=== PATIENT | female | born 1980 | race Caucasian/White ===

== ENCOUNTER → 2020-03-25 | Outpatient (CLI) | payer OTHER ==
[~2020-03-25] MED LIST: IBUPROFEN 800800 M1 PO; NOHOMEMEDICATIONS; PERCOCET PO; TRAMADOL 50 MG50 MG PO
== END ==
LOC: M.LAB 16:49
PROVIDERS: ATTEND Surgery
DX: Z01.818 Encounter for other preprocedural examination (principal); Z11.59 Encounter for screening for other viral diseases; N63.0 Unspecified lump in unspecified breast

== ENCOUNTER → 2020-03-28 | Day surgery (SDC) | payer OTHER ==
--- NOTE | ~2020-03-28 | OP ---
[address] [address] OPERATIVE REPORT Name: MARIELOS ZHOU Room: [facility]#: [id number] Admission: 03/28/20 Attend Phys: Nikki Bowen DO Discharge: Date of : 78 Report #: [id number] THIS REPORT FOR: //name// cc: Nigel Murcia John E. DO ~ CC: Nikki Murcia DO DATE OF SERVICE: 03/28/2020 PREOPERATIVE DIAGNOSIS: Right nipple mass. POSTOPERATIVE DIAGNOSIS: Right nipple mass. SURGEON: Nikki Bowen DO DAMAGE PREVENTION COORDINATOR: Iain King, PGY5 OPERATION PERFORMED: Excisional biopsy, right nipple mass. ANESTHESIA: General and local. ESTIMATED BLOOD LOSS: 5 mL. SPECIMEN: Right nipple mass. COMPLICATIONS: None. INDICATIONS: The patient is a 39-year-old female that noticed a right nipple mass. She underwent mammography and ultrasound, which demonstrated a BI-RADS 5 lesion 1 cm from the areola. She was informed of the risks and benefits of excisional biopsy and decided to proceed with surgery. DESCRIPTION OF PROCEDURE: After informed consent was obtained, the patient was brought to the operating room and placed in supine position. SCDs were on and running. Preoperative antibiotics were given. General anesthesia was administered with an LMA. The patient was prepped and draped in the usual sterile fashion. Surgical pause was held to confirm proper patient and procedure. The periareolar incision was planned and anesthetized with 0.5% Marcaine, #15 blade was used to create the skin incision. Dissection was carried through the dermis using cautery. A direct palpation was used to guide the location of dissection. Once the mass was identified, it was directly adherent to the deep side of the nipple. Metzenbaum scissors were used to separate the nipple areolar complex from the mass. Once completely detached, cautery was used for circumferential dissection. Again, [place] [id number] OPERATIVE REPORT Name: MARIELOS ZHOU Room: [facility].#: [id number] Admission: 03/28/20 Attend Phys: Nikki Bowen DO Discharge: Date of : 78 Report #: [id number] guide the extent of dissection. Once circumferentially around the mass, the mass was transected and handed off as specimen, it was marked with a short stitch superior, long stitch lateral. Again, the anterior superficial margin was the nipple complex itself. After this was handed off, the cavity was inspected for hemostasis. Cautery was used to achieve hemostasis. Wound was closed in layered fashion using 3-0 Vicryl, 4-0 Monocryl. Wound was cleansed and dressed with Dermabond. The patient was emerged from anesthesia and transferred to PACU in stable condition. All counts were correct. By: [id number] khai Nash
[2020-03-28 13:18] LABS: HEMATOCRIT 39.9 % (37.0-47.0); HEMOGLOBIN 13.8 gm/dL (12.0-15.0)
--- NOTE | 2020-04-02 11:07 | PATH ---
[address] [address] PATHOLOGY RPT PROCEDURE Name: MARIELOS ZHOU Room: [facility]#: [id number] Admission: 03/28/20 Date of : 78 Discharge: Report #: [id number] Path Case #: [id number] [facility] Accession Number: [id number] . 01 Material submitted: . breast - EXCISIONAL BIOPSY RIGHT NIPPLE/RIGHT BREAST. Modifiers: right . 01 Clinical history: . 03/26 EXCISION MASS NIPPLE MASS RIGHT BREAST STITCH SHORT SUPERIOR/LONG LATERAL . 02 Diagnosis: RIGHT NIPPLE/RIGHT BREAST, EXCISIONAL BIOPSY: - INFILTRATING DUCTAL ADENOCARCINOMA, INTERMEDIATE GRADE, SPANNING 14 MM, WITH LYMPHOVASCULAR INVASION AND WITH INVOLVEMENT OF SUPEROLATERAL, ANTERIOR AND MEDIAL MARGINS. SEE COMMENT. . . SURGICAL PATHOLOGY CANCER CASE SUMMARY Protocol posting date: September 2019 . INVASIVE CARCINOMA OF THE BREAST: Biopsy . Procedure ___ Other: Excisional biopsy Specimen Laterality ___ Right Tumor Site ___ Nipple Tumor Size ___ Greatest dimension of largest invasive focus >1 mm: 14 mm . Histologic Type ___ Invasive carcinoma of no special type (ductal) Histologic Grade (Eagle Histologic Score) Glandular (Acinar)/Tubular Differentiation ___ Score 2 (10% to 75% of tumor area forming glandular/tubular structures) Nuclear Pleomorphism ___ Score 3 (vesicular nuclei, often with prominent nucleoli, exhibiting marked variation in size and shape, occasionally with very large and bizarre forms) Mitotic Rate ___ Score 2 Overall Grade ___ Grade 2 (scores of 6 or 7) . Ductal Carcinoma In Situ (DCIS) [place] [address] PATHOLOGY RPT PROCEDURE Name: MARIELOS ZHOU Room: [facility].#: [id number] Admission: 03/28/20 Date of : 78 Discharge: Report #: [id number] Path Case #: [id number] ___ Present Architectural Patterns ___ Solid Nuclear Grade ___ Grade III (high) Necrosis ___ Not identified Lymphovascular Invasion ___ Present Microcalcifications ___ Present in non-neoplastic tissue Biomarker Studies ___ Pending Q 04/02/2020 1055 Local . 02 Comment: The tumor has some heterogeneity to its appearance in which some areas show prominent duct formation and others solid sheets of neoplastic cells, histologically apparent in A6. Inked/cauterized marginal involvement of the superolateral, anterior and medial margins are seen respectively in A1, A3 and A6. A panel of properly controlled immunohistochemical stains performed on A7 shows the neoplastic cells to have the following characteristics, supporting the classification: . E-cadherin: Strong positive Keratin AE1/AE3: Highlights neoplastic cells . Breast tumor profile studies are pending on A6 and will be the subject of an addendum report. Discussed with Dr. Dimas at approximately 0950 on 04/02/2020. (ROLAND/db; 04/02/2020) . 02 Electronically signed: . Fred Collado MD, Pathologist NPI- [id number] . 01 Gross description: . The specimen is received in formalin, labeled "Marielos Zhou, R nipple/R breast, short superior, long lateral". Received is a 5 g lumpectomy specimen measuring 4.1 cm from superior to inferior, 1.8 cm from medial to lateral, and 1.7 cm from anterior to posterior. The specimen is inked as follows: Superior-blue, inferior-green, lateral-red, medial-yellow, anterior-black, posterior-orange. Sectioning reveals white-donald, fibrous cut surfaces throughout with a slight amount of scattered yellow-donald lobulated tissue. The specimen is submitted entirely from superior to inferior aspects in cassettes A1 through A8. The cold ischemic time and time in formalin are not provided. The time out of formalin is 6:50 p.m. on 03/29/2020. [place] [address] PATHOLOGY RPT PROCEDURE Name: MARIELOS ZHOU Room: [facility]#: [id number] Admission: 03/28/20 Date of : 78 Discharge: Report #: [id number] Path Case #: [id number] (CAA; 03/29/2020) QAC/QAC 03/29/2020 1013 Local . 02 Pathologist provided ICD-10: C50.011 . 02 CPT . 689451, V84060, Q00332 Specimen Comment: A courtesy copy of this report has been sent to [phone], [phone] Specimen Comment: [id number] Specimen Comment: Report sent to DR DIMAS / DR RAHMAN Performed at: 01 [facility] [address], [place], [place] [id number] MD David Thapa MD Phone: [phone] Performed at: 02 [facility] [place] [facility] [address], [place] [id number] MD Fred Collado MD Phone: [phone]
== END | disposition home or self-care (01) ==
LOC: M.SUR 11:48
PROVIDERS: ATTEND Surgery
DX: N63.10 Unspecified lump in the right breast, unspecified quadrant (principal); C50.011 Malignant neoplasm of nipple and areola, right female breast; Z79.899 Other long term (current) drug therapy; Z88.1 Allergy status to other antibiotic agents; Z88.5 Allergy status to narcotic agent; Z98.890 Other specified postprocedural states

== ENCOUNTER → 2020-04-10 | Outpatient (CLI) | payer OTHER ==
[~2020-04-10] MED LIST changes: +OXYCODONE HCL 55 MG PO
== END ==
LOC: M.MRI 11:08
PROVIDERS: ATTEND Surgery
DX: C50.911 Malignant neoplasm of unspecified site of right female breast (principal); N63.0 Unspecified lump in unspecified breast

== ENCOUNTER → 2020-04-19 | Outpatient (CLI) | payer OTHER ==
[~2020-04-19] MED LIST changes: -OXYCODONE HCL 55 MG PO
--- NOTE | 2020-04-21 11:02 | CON ---
[address] [address] CONSULTATION Name: MARIELOS ZHOU Room: [facility]#: [id number] Admission: 04/19/20 Attend Phys: Harvinder Sharma MD Discharge: Date of : 78 Report #: [id number] THIS REPORT FOR: //name// cc: Dora Jaeger Ann FNPC ~ THIS REPORT FOR: //name// CC: Dora Crenshaw MD DATE OF SERVICE: 04/19/2020 [facility] RADIATION ONCOLOGY CONSULT NOTE REFERRING PHYSICIANS: Include RE Snell; Nikki Bowen DO, German Crenshaw MD PRIMARY SITE AND HISTOPATHOLOGY: The patient was diagnosed with an infiltrating ductal carcinoma that is estrogen receptor positive involving the right breast. HISTORY OF PRESENT ILLNESS: The patient is a 40-year-old female, who palpated a right nipple mass and went on to undergo a diagnostic bilateral mammogram, diagnostic imaging centers on 03/18/2020, and she also had an ultrasound and that revealed a 0.9 cm nodule, in the slightly lateral retroareolar right breast, which corresponded to the area of palpable concern. The ultrasound revealed a nodule at the 9 o'clock position of the right breast, which measured 1.5 cm x 1.1 cm x 1 cm. The patient denied having any nipple discharge. The patient had an excisional biopsy of that nodule and that was performed on 03/26/2020 and the pathology revealed an intermediate grade infiltrating ductal adenocarcinoma that spanned 1.4 cm with lymphovascular invasion and with involvement of the superolateral, anterior and medial margins. The breast cancer was 90% estrogen receptor positive, 65% progesterone receptor positive and HER2/elena negative, Ki-67 was about 25%. She indicated that she will be scheduled for reexcision of this area. She presents to discuss the role of radiation therapy. PAST MEDICAL HISTORY AND PAST SURGICAL HISTORY: The patient has diabetes. She has a history of bronchitis. She was treated for fallopian tube adhesion in 2003. She had right ankle repair in 2016. She also was treated for an ectopic in 2007. She had nodules resected from the vocal cords in 1983. OBSTETRICS AND GYNECOLOGY: Menarche at age 13. Last menstrual period 04/13/2020. The patient is 2, [address] [place] [address] CONSULTATION Name: ABELARDOMARIELOS Caicedo Room: [facility]#: [id number] Admission: 04/19/20 Attend Phys: Harvinder Sharma MD Discharge: Date of : 78 Report #: [id number] FAMILY HISTORY: Paternal grandmother had breast cancer. Paternal grandfather had prostate cancer. 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 She is . She has a 9-year-old daughter and a 12-year-old son. Ethanol: She, maybe, drinks an alcohol-containing beverage once a week. Cigarettes: She does not smoke cigarettes. REVIEW OF SYSTEMS: GENERAL: She denied having any fevers or chills. SKIN: She denied having any color changes, itching, bruising. LYMPH NODES: She denied having enlarged or painful glands in the neck. ENDOCRINE: She denied having any hot or cold intolerance. HEMATOLOGY AND IMMUNOLOGY: She denied having any anemia or recent bleeding. MUSCULOSKELETAL: She denied having any arthritis or painful swollen joints. HEAD AND NECK: She denied having any headaches, migraines, vertigo. RESPIRATORY: She denied having shortness of breath. CARDIOVASCULAR: She denied having palpitations. GASTROINTESTINAL: She denied having nausea or vomiting. NEUROLOGIC: Denied having focal weakness. PHYSICAL EXAMINATION: With my nurse, Marleny Lopes, present: VITAL SIGNS: Height was 5 feet 2-3/4 inches, weight 194.8 pounds, blood pressure was 110/68, pulse was 99, temperature was 98.4 degrees Fahrenheit, oxygen saturation was 94%. GENERAL: The patient was alert, oriented, in no acute distress. LYMPH NOES: She had no palpable cervical or supraclavicular or axillary lymphadenopathy. EYES: Pupils were equal, round, reactive to light and accommodation. Extraocular movement was intact. HEAD, EARS, EAR, NOSE, AND THROAT: Mouth had no visible lesions. HEENT: Pupils were equal, round, reactive to light and accommodation. HEART: Had a regular rate and rhythm without murmur. LUNGS: were clear to auscultation. BREASTS: The left breast had no suspicious palpable masses and the right breast had postoperative changes, but no suspicious palpable masses. ABDOMEN: Not tender. Spleen was not palpable. Liver was at the costal margin. EXTREMITIES: Had no clubbing, cyanosis or edema. NEUROLOGIC: Cranial nerves 2-12 are intact. Sensation was intact. The patient had 5/5 strength in her extremities. RADIOLOGY REPORT: Breast MRI From 04/10/2020. That revealed a biopsy [place] [address] CONSULTATION Name: MARIELOS ZHOU Room: [facility]#: [id number] Admission: 04/19/20 Attend Phys: Harvinder Sharma MD Discharge: Date of : 78 Report #: [id number] that measured 2.5 cm.x 2.2 x 2.5 cm. There was no abnormal axillary adenopathy. ASSESSMENT AND PLAN: The patient has findings consistent with an early stage, estrogen receptor positive right breast cancer. She does realize that her local treatment options are mastectomy versus breast conservation therapy. The patient has pursued breast conservation therapy. The patient indicated that she will be scheduling a reexcision of the lumpectomy bed and lymph node sampling. The efficacy of breast conservation therapy can be found in the NSABP B-06 protocol, which randomized patients with early breast cancer between total mastectomy versus lumpectomy alone versus lumpectomy and radiation therapy. At 20 years' followup, there was no significant difference in overall survival between the 3 groups. The addition of radiation therapy to lumpectomy reduced local failure rate from 39%-14%. She also already saw her medical oncologist, Dr. Crenshaw. The risks, benefits, logistics of radiation therapy were explained to the patient in detail. She was told that radiation therapy was the standard part of breast conservation therapy to help reduce the local failure rate. At this point, she was asked to return for a follow up appointment in about 4-6 weeks and then review her surgical pathology at that point and help set up radiation therapy. Thank you very much for this consult. <ELECTRONICALLY SIGNED> By: Harvinder Sharma MD 04/21/20 1102 [id number] khai Mcdowell
== END ==
LOC: M.RTH 11:00
PROVIDERS: ATTEND Radiology Radiation Oncology
DX: C50.911 Malignant neoplasm of unspecified site of right female breast (principal); E11.9 Type 2 diabetes mellitus without complications

== ENCOUNTER → 2020-05-08 | Outpatient (CLI) | payer OTHER ==
[~2020-05-08] MED LIST changes: +OXYCODONE HCL 55 MG PO
== END ==
LOC: M.LAB 16:39
PROVIDERS: ATTEND Surgery
DX: Z01.812 Encounter for preprocedural laboratory examination (principal); Z20.828 Contact with and (suspected) exposure to other viral communicable diseases

== ENCOUNTER → 2020-05-14 | Day surgery (SDC) | payer OTHER ==
[2020-05-14 12:55] LABS: HEMATOCRIT 40.1 % (37.0-47.0)
--- NOTE | 2020-05-15 08:04 | OP ---
[address] [address] OPERATIVE REPORT Name: ABELARDOMARIELOS Marifer Room: [facility]#: [id number] Admission: 05/14/20 Attend Phys: Nikki Bowen DO Discharge: Date of : 78 Report #: [id number] THIS REPORT FOR: //name// cc: Dora Jaeger Ann FNPC ~ CC: Dora Bowen DICTATED BY: Iain King DO DATE OF SERVICE: 05/14/2020 PREOPERATIVE DIAGNOSIS: Right breast cancer of the areola. POSTOPERATIVE DIAGNOSIS: Right breast cancer of the areola. FINDINGS: Previous periareolar incision with underlying cavity uptake at the nipple was 6233, uptake of the lymph node was 1180. SURGEON: Nikki Bowen DO CO-SURGEON: Iain King, PGY5 CARCASS SPLITTER: Harsha Carlisle, PGY1. OPERATION PERFORMED: Excision of the right nipple areolar complex and right superficial sentinel lymph node dissection. ANESTHESIA: General and local. ESTIMATED BLOOD LOSS: 10 mL. SPECIMEN REMOVED: Right nipple areolar complex and right sentinel lymph node biopsy. COMPLICATIONS: None. CONDITION: Stable. DISPOSITION: PACU to home. INDICATIONS: The patient is a 40-year-old female who was found to have right breast mass directly under the right nipple. She was previously taken for excision of the mass, which was found to be invasive cancer with positive margins. She was informed of the risks and benefits of excision of the nipple [address] [address] OPERATIVE REPORT Name: FLAKITOMATEOMARIELOS Room: [facility].#: [id number] Admission: 05/14/20 Attend Phys: Nikki Bowen DO Discharge: Date of : 78 Report #: [id number] areolar complex as well as sentinel lymph node biopsy. She understood the risks and decided to proceed with surgery. TECHNIQUE: After informed consent was obtained, the patient was brought to the operating room and placed in supine position. SCDs were on and running. Preoperative antibiotics were given. General anesthesia was administered with an ET tube. A pre-timeout was held and the isosulfan blue was injected the superior, inferior, medial and lateral aspects of the nipple, 2 mL per quadrant. The patient was then prepped and draped in usual sterile fashion. A surgical pause was held to confirm proper patient and procedure. The incision was planned about the right nipple with an ellipse extending 2 cm lateral at the right and left aspect of the NAC. The planned incision site was infiltrated with 0.5% Marcaine #15 blade was used to make the elliptical incision. Dissection was carried through the dermis and subcutaneous tissue using cautery. An Allis was used to grasp the ellipse of the skin. Cautery was used to excise the nipple areolar complex with care to stay deep enough to include the previous dissection cavity. Once this was completely excised, it was maintain its orientation. A short stitch was placed superior and a long stitch lateral. This was handed off as specimen to go for permanent. The cavity was inspected and hemostatic. This was closed in layered fashion using 3-0 Vicryl and 4-0 Monocryl and it was cleansed and dressed with Dermabond. Attention was then turned towards the right axilla. The uptake at the nipple specimen with the Neoprobe was 6233, a 2 cm incision inferior to the hair-bearing portion of the right axilla was made just posterior to the lateral border of the pectoralis major. Dissection was carried through the subcutaneous tissue until the clavipectoral fascia was identified. This was incised and opened using cautery. A [employer] [place] was used to provide retraction. Blunt dissection was used to dissect down to the lymph node under guidance of the Neoprobe. Once high uptake was identified, the lymph node was palpated and subsequently identified as it had some uptake of the blue dye. This was circumferentially dissected free from the surrounding tissue and amputated using cautery. The maximum uptake of the lymph node was 1180. There was no background higher than 10% of the lymph node value. Cautery was used for hemostasis. Wound was thoroughly irrigated. Surgiflo was used to inject into the right axilla. This wound was closed in layered fashion using 3-0 Vicryl and 4-0 Monocryl. Wound was cleansed and dressed with Dermabond. All counts were correct. The patient was emerged from anesthesia and transferred to the PACU in stable condition. <ELECTRONICALLY SIGNED> By: Nikki Bowen DO 05/15/20 0804 1522 [id number] Bowen DO /nt
--- NOTE | 2020-05-17 11:07 | PATH ---
[facility] [address] [place] [address] PATHOLOGY RPT PROCEDURE Name: MARIELOS ZHOU Room: [facility]#: [id number] Admission: 05/14/20 Date of : 78 Discharge: Report #: [id number] Path Case #: [id number] [facility] Accession Number: [id number] . 01 Material submitted: . PART A: nipple - RIGHT NIPPLE AREOLAR COMPLEX (SHORT-SUPERIOR, LONG-LATERAL). Modifiers: right PART B: lymph node - RIGHT AXILLARY SENTINEL LYMPH NODE. Modifiers: right, axillary tail . 01 Clinical history: . INFILTRATING DUCTAL CARCINOMA . 02 Diagnosis: A. Right nipple areolar complex: - INFILTRATING DUCTAL ADENOCARCINOMA, INTERMEDIATE GRADE, SPANNING 7 MM, ASSOCIATED WITH PRIOR BIOPSY SITE, WITH INVOLVEMENT OF INFERIOR MARGIN FOR SPAN OF 3 MM. SEE COMMENT. . B. Right axillary sentinel lymph node: - One benign lymph node (0/1). See comment. (ROLAND:michaela; 05/16/2020) . . Surgical Pathology Cancer Case Summary . Protocol posting date: September 2019 . INVASIVE CARCINOMA OF THE BREAST: Resection . Procedure ___ Excision (less than total mastectomy) . Specimen Laterality ___ Right . Tumor Site ___ Other: Nipple areolar complex . Tumor Size ___ Greatest dimension of largest invasive focus >1 mm: 7 mm. See comment. . Histologic Type ___ Invasive carcinoma of no special type (ductal) . Histologic Grade ([place] Histologic Score) . Glandular (Acinar)/[place] [address] PATHOLOGY RPT PROCEDURE Name: MARIELOS ZHOU Room: [facility].#: [id number] Admission: 05/14/20 Date of : 78 Discharge: Report #: [id number] Path Case #: [id number] ___ Score 2 (10% to 75% of tumor area forming glandular/tubular structures) . Nuclear Pleomorphism ___ Score 2 (cells larger than normal with open vesicular nuclei, visible nucleoli, and moderate variability in both size and shape) . Mitotic Rate ___ Score 2 . Overall Grade ___ Grade 2 (scores of 6 or 7) . Tumor Focality ___ Single focus of invasive carcinoma . Ductal Carcinoma In Situ (DCIS) ___ Present ___ Negative for extensive intraductal component (EIC) . Size (Extent) of DCIS Estimated size (extent) of DCIS is at least 4 mm . Architectural Patterns ___ Solid . Nuclear Grade ___ Grade II (intermediate) . Necrosis ___ Not identified . Lobular Carcinoma In Situ (LCIS) ___ Not identified . Tumor Extension . Skin ___ Skin is present and uninvolved . Nipple ___ DCIS does not involve the nipple epidermis . Skeletal Muscle ___ No skeletal muscle is present . Margins . [place] [address] PATHOLOGY RPT PROCEDURE Name: MARIELOS ZHOU Room: [facility]#: [id number] Admission: 05/14/20 Date of : 78 Discharge: Report #: [id number] Path Case #: [id number] . ___ Positive for invasive carcinoma ___ Inferior Extent: at least 3 mm (See comment) . DCIS Margins ___ Uninvolved by DCIS Distance from closest margin: 2 mm . Specify closest margin: ___ Inferior: . Regional Lymph Nodes ___ Uninvolved by tumor cells Total Number of Lymph Nodes Examined: 1 Number of Marion Nodes Examined: 1 . Treatment Effect in the Breast ___ No known presurgical therapy . Lymphovascular Invasion ___ Not identified . Dermal Lymphovascular Invasion ___ Not identified . . PATHOLOGIC STAGE CLASSIFICATION (PTNM, AJCC 8TH EDITION) . ___ pT1c: Tumor greater than 10 mm but less than or equal to 20 mm in greatest dimension . Regional Lymph Nodes Modifier ___ (sn): Marion node evaluated. . Regional Lymph Nodes (pN) ___ pN0: No regional lymph node metastasis identified or ITCs only# . Ancillary Studies ___ Breast Biomarker Testing Performed on Previous Biopsy Testing Performed on A6 . Estrogen Receptor (ER) ___ Positive (greater than 10% of cells demonstrate nuclear positivity) 90% . Progesterone Receptor (PgR) ___ Positive 65% . HER2 (by immunohistochemistry) [place] [address] PATHOLOGY RPT PROCEDURE Name: MARIELOS ZHOU Room: [facility]#: [id number] Admission: 05/14/20 Date of : 78 Discharge: Report #: [id number] Path Case #: [id number] ___ Negative (Score 1+) . ___ Ki-67 percentage of positive nuclei: 25% . Microcalcifications ___ Present in non-neoplastic tissue S 05/17/2020 1038 Local . 02 Comment: The tumor size provided in the synoptic data is taken from the span seen in the prior excisional biopsy ([phone]). The tumor is seen to frankly involve the green inked inferior surgical margin in both A4 and A5, spanning 3mm in greatest dimension thru the planes of sections examined. The grossly described "raised and white" possible skin lesion on the nipple shows no neoplasm and may be attributable to prior biopsy changes. Properly controlled keratin AE1/AE3 immunohistochemical stain performed on B1 shows no evidence of metastatic tumor. (ROLAND:michaela; 05/16/2020) . 02 Electronically signed: . Fred Collado MD, Pathologist NPI- [id number] . 01 Gross description: . A. The specimen is received in formalin, labeled "Marielos Zhou, right nipple areolar complex". Received is a 44 g lumpectomy specimen with a short suture designating the superior margin and a long suture designating the lateral margin. The specimen measures 6.7 cm from medial to lateral, 4.6 cm from superior to inferior, and 3.4 cm from anterior to posterior. The anterior aspect of the specimen displays an attached ellipse of skin measuring 6.7 x 3.3 cm with a centrally located everted nipple and areolar complex, measuring 1.7 x 1.7 and 2.4 x 2.4 cm, respectively. The nipple displays a possible well-circumscribed, raised and white lesion measuring 1.2 x 0.7 x 0.1 cm. . The specimen is inked as follows: Superior-blue, inferior-green, lateral-red, medial-yellow, and posterior-orange. The specimen is sectioned from medial to lateral aspects into 18 slices, and is noted to have extensive blue dye-staining throughout, to reveal a previous biopsy site measuring 1.4 x 0.5 x 0.4 cm, which is located in slices 4 through 9. This site is 1.1 cm from the lateral margin, 3.4 cm from the medial margin, 0.6 cm from the posterior margin, 1.0 cm from the epidermal surface, 2.4 cm from the superior margin, and 1.2 cm from the inferior margin. At the medial aspect of the previous biopsy site in slice 9, there are yellow-donald foci present. The remainder of the specimen displays bright yellow, lobulated to white, fibrous cut surfaces throughout. The specimen is submitted representatively as follows: [place] [address] PATHOLOGY RPT PROCEDURE Name: MARIELOS ZHOU Room: [facility]#: [id number] Admission: 05/14/20 Date of : 78 Discharge: Report #: [id number] Path Case #: [id number] A1-A2 most lateral margin, serially sectioned A3 most medial margin, bisected A4-A9 entire previous biopsy site submitted from lateral to medial aspects A10 perpendicular section through nipple to show possible skin lesion. . The cold ischemic time is less than 1 minute. The total formalin fixation time is 31 hours and 10 minutes. . B. The specimen is received in formalin, labeled "Marielos Zhou, right axillary sentinel lymph node". Received is a segment of yellow-donald lobulated tissue measuring 2.0 x 1.0 x 0.9 cm in greatest dimensions. Sectioning reveals a single lymph node measuring 1.4 cm. The specimen is bisected and entirely submitted in cassette B1. Immunohistochemical stains are ordered. The cold ischemic time is less than 1 minute. The total formalin fixation time is 31 hours and 10 minutes. (CAA; 05/15/2020) QAC/QAC 05/17/2020 [facility] Local . 02 Pathologist provided ICD-10: C50.011, D24.1 . 02 CPT . 885870, 802141, Y54805 Specimen Comment: A courtesy copy of this report has been sent to [phone] Specimen Comment: [phone] Specimen Comment: Report sent to / DR LOYD Performed at: [address] [facility], [place] [id number] MD David Thapa MD Phone: [phone] Performed at: 02 [facility] [place] [address] [address], [place], [place] [id number] MD Fred Collado MD Phone: [phone]
== END | disposition home or self-care (01) ==
LOC: M.SUR 09:55
PROVIDERS: ATTEND Surgery
DX: C50.011 Malignant neoplasm of nipple and areola, right female breast (principal); D36.0 Benign neoplasm of lymph nodes; D24.1 Benign neoplasm of right breast; E11.9 Type 2 diabetes mellitus without complications; Z98.890 Other specified postprocedural states; Z79.899 Other long term (current) drug therapy

== ENCOUNTER → 2020-05-31 | Outpatient (CLI) | payer OTHER | LOC: M.LAB 15:53 | PROVIDERS: ATTEND Surgery | DX: Z01.812 Encounter for preprocedural laboratory examination (principal); Z20.828 Contact with and (suspected) exposure to other viral communicable diseases; D05.11 Intraductal carcinoma in situ of right breast ==

== ENCOUNTER → 2020-06-06 | Day surgery (SDC) | payer OTHER ==
[2020-06-06 07:25] LABS: HEMATOCRIT 39.1 % (37.0-47.0); HEMOGLOBIN 13.2 gm/dL (12.0-15.0)
--- NOTE | 2020-06-06 15:18 | OP ---
[address] [address] OPERATIVE REPORT Name: FLAKITOMATEOMARIELOS Marifer Room: [facility]#: [id number] Admission: 06/06/20 Attend Phys: Nikki Bowen DO Discharge: Date of : 78 Report #: [id number] THIS REPORT FOR: //name// cc: Dora Jaeger Ann FNPC ~ CC: Dora Bowen DICTATED BY: Iain King DO DATE OF SERVICE: 06/06/2020 PREOPERATIVE DIAGNOSIS: Right breast triple-negative ductal carcinoma. POSTOPERATIVE DIAGNOSIS: Right breast triple-negative ductal carcinoma. SURGEON: Nikki Bowen DO. ELECTRIC FURNACE OPERATOR: Israel MS3. CO-SURGEON: Iain King, PGY5. OPERATION PERFORMED: Right breast reexcision of inferior margin, left internal jugular ultrasound and fluoroscopy-guided chemo port placement, surgeon interpretation of fluoroscopic images. FLUOROSCOPY TIME: 16 seconds. ANESTHESIA: General, local. ESTIMATED BLOOD LOSS: 5 mL. SPECIMEN: Right breast inferior margin with short stitch superior, long stitch lateral as the specimen. COMPLICATIONS: None. INDICATIONS: The patient is a 40-year-old female with a right breast cancer, with recent history of biopsy of nipple mass that confirmed carcinoma, followed by a complete excision of her nipple-areolar complex. There was some question of positivity at the inferior margin. Therefore, she was informed of the risks and benefits of margin reexcision. She was also found to have a high oncotype DX score and Medical Oncology advised for chemotherapy. Therefore, she was informed of the risks and benefits of chemo port placement. She understood these risks and decided to proceed with surgery. [address] [address] OPERATIVE REPORT Name: MARIELOS ZHOU Room: [facility]#: [id number] Admission: 06/06/20 Attend Phys: Nikki Bowen DO Discharge: Date of : 78 Report #: [id number] TECHNIQUE: After informed consent was obtained, the patient was brought to the operating room and placed in supine position. SCDs were on and running. Preoperative antibiotics were delivered. General anesthesia was administered with an LMA. The patient was prepped and draped in the usual sterile fashion. A timeout was performed. A 0.5% Marcaine was injected at the left neck and left chest. An 18-gauge needle was used to access the left internal jugular vein under ultrasound guidance. The wire was introduced into the vein and confirmed with fluoroscopy. The infraclavicular pocket was then created by making a 3 cm incision with a 15 blade. Cautery was used to dissect through the subcutaneous tissue. Blunt dissection was used to create an adequate size pocket to accommodate the port. The 11 blade was then used to create a skin incision over the wire. The sheath dilator was placed over the wire. The wire and inner cannula were removed. The 8-Mongolian Groshong catheter was introduced through the peel-away sheath. Once all the way in, the peel-away sheath was removed, maintaining the position of the Groshong catheter. The catheter was then withdrawn under fluoroscopy until it was in adequate position at the cavoatrial junction. The tunneler was then used to tunnel from the IJ over the clavicle to the subcutaneous pocket inferior to the clavicle. The Groshong catheter was then tunneled through this tract. The position of the catheter was once again confirmed under fluoroscopy. The catheter was transected and attached to the hub of the chemo port. The chemo port was secured to the deep tissue using 2 stitches of 0 Prolene. The hub was secured over the catheter. Injectable saline was used to withdraw and flush the catheter. The catheter was packed with 3 mL of 500 units per mL heparin. The port was only accessed using a Hernandez needle. The port was then placed within its pocket and the 0 Prolene was tied down. The wound was closed in layered fashion using 3-0 Vicryl and 4-0 Monocryl. The wound was dressed with Dermabond at the neck and chest incisions. Attention was then turned towards the right breast. A 15 blade was used to open the previous incision at the medial most aspect for a total length of approximately 5 cm. Old suture material was identified and removed. The cavity had a seroma and this was evacuated. The cavity was fully opened and realized. The inferior margin was grasped with an Allis. Cautery was used to obtain approximately 1 cm deep inferior margin. Once this was completely transected, its orientation was maintained and marked using a short stitch superior and a long stitch lateral. This was handed off for permanent specimen. The cavity was inspected for hemostasis. Cautery was used for hemostasis. The wound was thoroughly irrigated and suctioned. The wound was then closed in layered fashion using 3-0 Vicryl and 4-0 Monocryl and it was cleansed and dressed with Dermabond. The patient was emerged from anesthesia. All counts were correct as she was placed in a postop bra and sent to the PACU in stable condition. There were no complications. <ELECTRONICALLY SIGNED> By: Nikki Bowen DO 06/06/20 1518 [id number] Sharmila Bowen DO /matt
--- NOTE | 2020-06-11 10:07 | PATH ---
[address] [address] PATHOLOGY RPT PROCEDURE Name: MARIELOS ZHOU Room: [facility].#: [id number] Admission: 06/06/20 Date of : 78 Discharge: Report #: [id number] Path Case #: [id number] L[facility] Accession Number: [id number] . 01 Material submitted: . breast - RIGHT BREAST RE-EXCISION SHORT SUPERIOR, LONG LATERAL, INFERIOR MARGIN. Modifiers: right . 01 Clinical history: . INFILTRATING DUCTAL CARCINOMA RIGHT BREAST . 02 Diagnosis: Right breast re-excision inferior margin: - RESIDUAL INFILTRATING DUCTAL ADENOCARCINOMA, INTERMEDIATE GRADE, SPANNING 3 MM, WITH INVOLVEMENT OF LATERAL MARGIN FOR 1.6 MM SPAN. - FOCAL DUCTAL CARCINOMA IN SITU (DCIS), NUCLEAR GRADE II, SOLID TYPE, SPANNING LESS THAN 1 MM, WITH ALL SURGICAL MARGINS FREE OF INVOLVEMENT AND CLOSEST (LATERAL) LOCATED 4 MM AWAY. SEE COMMENT. (ROLAND:pit 06/10/2020) QTP 06/10/2020 1639 Local . 02 Comment: Infiltrating ductal adenocarcinoma is seen in two sections in A1, both demonstrating involvement of the inked and cauterized lateral margin. Changes of recent prior surgery including fibrosis and foreign body type granulomatous response are noted at the opposite aspect of one of the tissue sections. (ROLAND:pit 06/10/2020) . 02 Electronically signed: . Fred Collado MD, Pathologist NPI- [id number] . 01 Gross description: . Received in formalin labeled "Marielos Zhou, right breast reexcision inferior margin short stitch superior long lateral" is an oriented breast lumpectomy specimen weighing 9 g and measuring 4.8 cm from medial to lateral, 2.8 cm from anterior to posterior, and 2.1 cm from superior to inferior. The superior aspect displays a short suture, and has a slightly granular/hemorrhagic appearance, possibly consistent with prior lumpectomy site changes. The lateral aspect displays a long suture. The specimen is inked as follows: Superior (possible lumpectomy site)-red, inferior-blue, anterior-green, posterior-black, lateral-orange, medial-yellow. The specimen is sectioned from lateral to medial into 13 slices. The cut surfaces are yellow-donald and lobulated with focal fibrous areas along the superior aspect. A biopsy site is not identified. The specimen is submitted entirely as follows: A1 slice 1, lateral margin, [place] [address] PATHOLOGY RPT PROCEDURE Name: MARIELOS ZHOU Room: [facility]#: [id number] Admission: 06/06/20 Date of : 78 Discharge: Report #: [id number] Path Case #: [id number] A2 slices 2-3 A3 slice 4 A4 slice 5 A5 slice 6 A6 slice 7 A7 slice 8 A8 slice 9 A9 slice 10 A10 slices 11-12 A11 slice 13, medial margin, perpendicular sections The specimen is removed from the patient at 0930 and placed in formalin at an unspecified time on 06/06/2020. The specimen is removed from formalin at 1850 on 06/07/2020. ([facility]; 06/07/2020) [facility] 06/07/2020 1121 Local . 02 Pathologist provided ICD-10: C50.911, D05.11 . 02 CPT . 156826 Specimen Comment: A courtesy copy of this report has been sent to [phone] Specimen Comment: [phone] Specimen Comment: Report sent to / MARIAN LOYD Performed at: 01 [facility] [address] [place] [address] [address], [place], [place] [id number] MD Mahendra Scruggs MD Phone: [phone] Performed at: 02 [facility] [address], [place] [id number] MD Fred Collado MD Phone: [phone]
== END | disposition home or self-care (01) ==
LOC: M.SUR 06:49
PROVIDERS: ATTEND Surgery
DX: C50.911 Malignant neoplasm of unspecified site of right female breast (principal); Z45.2 Encounter for adjustment and management of vascular access device; Z79.899 Other long term (current) drug therapy; Z98.890 Other specified postprocedural states; Z88.8 Allergy status to other drugs, medicaments and biological substances

== ENCOUNTER → 2020-06-24 | Outpatient (CLI) | payer OTHER ==
[~2020-06-24] MED LIST changes: +COLACE100 MG PO; +MULTIVITAMINS1 EAC7 PO; +PROBIOTIC1 EAC7 PO; +VITAMIN C1000 MG PO
== END ==
LOC: M.LAB 16:32
PROVIDERS: ATTEND Surgery
DX: Z01.812 Encounter for preprocedural laboratory examination (principal); Z20.828 Contact with and (suspected) exposure to other viral communicable diseases

== ENCOUNTER 2020-06-28 05:32 | Observation (INO) | payer OTHER ==
[~2020-06-28] VITALS: Ht 160 cm; Wt 84.4 kg
--- NOTE | ~2020-06-28 | OP ---
[address] [address] OPERATIVE REPORT Name: ABELARDOMARIELOS Caicedo Room: [address] [place]#: [id number] Admission: 06/28/20 Attend Phys: Maria G Mccall Discharge: Date of : 78 Report #: [id number] THIS REPORT FOR: //name// cc: Dora Jaeger Ann FNPC ~ CC: Dora Rodriguez DATE OF SERVICE: 06/28/2020 PREPROCEDURE DIAGNOSIS: Right breast cancer. POSTPROCEDURE DIAGNOSIS: Right breast cancer. FINDINGS: Recent surgery on the right breast. SURGEON: Nikki Bowen DO CUSHION ASSEMBLER: Darrion NOE4 and Michelle NOE4. OPERATION PERFORMED: Bilateral simple mastectomy. ANESTHESIA: LMA and local. ESTIMATED BLOOD LOSS: 50 mL. DRAINS: Bilateral 15-Vincentian JOSE drains. SPECIMENS: Bilateral breasts. COMPLICATIONS: None. CONDITION: Stable. DISPOSITION: PACU to the floor. HISTORY OF PRESENT ILLNESS: The patient is a very pleasant 40-year-old female who is well known to me from a previous right breast lumpectomy. Unfortunately, her margins continued to be positive after several attempts to completely remove her cancer as we have thus far tried and failed. We are now moving forward with a bilateral simple mastectomy. Risks of surgery were discussed to include bleeding, infection, pain, scars and need for further surgery and risks of general anesthesia. The patient understood these risks and elected to proceed. DESCRIPTION OF PROCEDURE: The patient was brought to the operating room. She [facility] [address] [facility]. [place] [id number] OPERATIVE REPORT Name: MARIELOS ZHOU Room: [address] M..#: [id number] Admission: 06/28/20 Attend Phys: Marai G Mccall Discharge: Date of : 78 Report #: [id number] laid supine on the operating room table. SCDs were placed on bilateral lower extremities. Ancef was given in the perioperative period. General LMA anesthesia was induced by Anesthesia without difficulty. Bilateral breasts, chest and axilla were prepped and draped in the standard sterile fashion. Timeout was performed to verify patient and procedure. I began by marking out the sternum, the inframammary folds, the clavicles and the latissimus dorsi. Bilateral elliptical incisions were marked out. I began on the left side, which is the noncancerous side. A 20 mL of 0.5% Marcaine were injected along the planned incision. Incision was opened with a 10 blade. PlasmaBlade was used for hemostasis. PlasmaBlade was then used to create flaps. We began initially moving superiorly to the clavicle, then medially to the sternum, inferiorly to the inframammary fold and laterally to the latissimus dorsi. Breast tissue was gently elevated using an Allis clamp and was dissected free from the underlying pectoralis fascia using the PlasmaBlade. Specimen was marked in the superior and lateral direction was handed off for permanent pathology. Wound was irrigated. Hemostasis was assured. Wound was packed with a lightly moistened lap and covered with a blue towel. We then turned our attention to the right breast, 20 mL of 0.5% Marcaine were injected in the planned incision. Incision was made with a 10 blade. PlasmaBlade was again used for hemostasis. Flaps were formed in the same fashion as previously, initially moving superiorly to the clavicle, medially to the sternum, inferiorly to the inframammary fold and laterally to the latissimus dorsi. Tissue was elevated from the pectoralis and was dissected free using the PlasmaBlade. Specimen was again marked in the superior lateral direction, was handed off for permanent pathology. Hemostasis was again assured on this side. A 5 mL of FloSeal were introduced in each breast cavity. Bilateral 15-Vincentian hubless JOSE drains were introduced through the inferior flap and was sutured into place using a 2-0 nylon. The incisions were both closed in a layered fashion using a multitude of deep and superficial inverted interrupted 3-0 Vicryl stitches. Both skin wounds were closed with running 4-0 Monocryl. Wounds were cleansed and covered with skin glue and were then covered with ABDs, surgical bra was placed in the operating room. The patient was then allowed to awaken from anesthesia, was extubated and transported to the recovery room with no further difficulties. Counts were correct x 2 at the conclusion of the case. By: 1853 Channa Bowen DO /matt
--- NOTE | ~2020-06-28 | H ---
[address] [address] HISTORY AND PHYSICAL Name: MARIELOS ZHOU Room: [address] Gustavo#: [id number] Admission: 06/28/20 Attend Phys: Maria G Mccall Discharge: 06/29/20 Date of : 78 Report #: [id number] THIS REPORT FOR: //name// cc: Dora Jaeger Ann FNPC ~ Please refer to the History and Physical performed in the physician's office. By: 1325Medical Records Staff [facility] /JING
[2020-06-28 12:28] LABS: HEMOGLOBIN 12.8 gm/dL (12.0-15.0)
--- NOTE | 2020-06-28 18:03 | NUR ---
PT ADMITTED FROM SURGERY AFTER BILATERAL MASTECTOMY. JOSE DRAINS X2 IN PLACE. SURGICAL INCISIONS CLOSED WITH DERMABOND. NO DRAINAGE FROM THAT NOTED. O2 2L NC. DIAN MARION ON PER PT REQUST FOR COMFORT. SCD'S IN PLACE.
[2020-06-28 18:06] VITALS: BP 106/60
[2020-06-29 00:08] VITALS: BP 187/86
[2020-06-29 04:13] VITALS: BP 152/65
--- NOTE | 2020-06-29 04:33 | NUR ---
PT SLEEPING WELL THROUGH SHIFT. DOING WELL ON PO PAIN MEDICATIONS. ICE PACKS TO BREAST BILATERALLY. SHE IS UP STANDYBY ASSIST TO RESTROOM. RECEIVED ALL FLUIDS AND ABX SCHEDULED. ALERT AND ORIENTED. JOSE DRAINS BOTH INTACT.
[2020-06-29 07:50] VITALS: BP 120/63
[2020-06-29 10:47] VITALS: BP 120/63
--- NOTE | 2020-06-29 10:51 | NUR ---
CM SPOKE TO THE PATIENT TO DISCUSS CM ASSESSMENT AND D/C PLANNING. PT A&O, INDEPENDENT, ACTIVE AND WORKS. PT OWNS 0 DME. PT HAS 0 HX OF HH OR SNF. PLAN FOR PT TO D/C HOME TODAY WITH HH AND SHE HAS NO PREFERANCE LONG IT IS IN-NETWORK WITH HER INSURANCE. CM FAXED HH REFERRAL AND D/C ORDERS TO [facility]. [facility] WILL CONTACT THE PT TO ARRANGE A TIME TO VISIT. CM WILL REMAIN AVAILABLE TO ASSIST AND FOLLOW NEEDED. [facility] PHONE: [phone] FAX: [phone]
[2020-06-29 11:21] VITALS: BP 120/63
[2020-06-29 11:38] VITALS: BP 123/56
--- NOTE | 2020-06-29 14:48 | NUR ---
PT GIVEN DISCHARGE INFORMATION, CARE NOTES, AND PRESCRIPTIONS. IV REMOVED. EDUCATION GIVEN ON DRAINS. HOME HEALTH SET UP. PT BELONGINGS GATHERED. PT LEFT VIA WHEELCHAIR WITH NURSING STAFF TO HOME WITH SPOUSE.
== END 2020-06-29 15:00 | disposition home or self-care (01) ==
LOC: M.PRE 05:32 → M.TBA 11:56 → M.PRE 15:22 → M.3W 17:35 → M.PRE 18:17 → M.3W 06-29 15:00
PROVIDERS: Surgery; ADMIT Internal Medicine; ATTEND Internal Medicine
DX: C50.911 Malignant neoplasm of unspecified site of right female breast (principal); Z79.899 Other long term (current) drug therapy